=== PATIENT | female | born 1980 | race Caucasian/White ===

== ENCOUNTER 2017-08-10 22:49 | Emergency (ER) | payer MEDICAID ==
[~2017-08-10] VITALS: Ht 154.9 cm; Wt 78.6 kg
[2017-08-10 23:16] VITALS: BP 123/89
--- NOTE | 2017-08-11 02:15 | NUR ---
PATIENT LEFT WITHOUT BEING SEEN BY DR. VILLASENOR. NO FURTHER CARE PROVIDED FOR PATIENT.
== END 2017-08-11 02:15 | disposition left against medical advice (07) ==
LOC: MED 22:49
DX: Z53.21 Procedure and treatment not carried out due to patient leaving prior to being seen by health care provider (principal)